=== PATIENT | female | born 1950 | race Caucasian/White ===

== ENCOUNTER 2016-06-05 10:15 | Outpatient (RCR) | payer BC ==
[~2016-06-05 10:15] MED LIST: ASPIRIN 32325 MG/TAB PO; FOLIC ACID 40400 MCG PO; IRON TABLETS325 MG PO; MILK OF MA400 MG/5 M PO; NORCO 325 MG-7.1 TAB PO; ROXICODONE 55 MG/TAB PO; SENOKOT8.6 MG PO; TAMBOCOR50 MG PO; VITAMIN C500 MG PO
== END 2016-07-25 14:24 | disposition home or self-care (01) ==
LOC: WSPT 10:15
DX: S93.492D Sprain of other ligament of left ankle, subsequent encounter (principal); X58.XXXD Exposure to other specified factors, subsequent encounter

== ENCOUNTER 2016-10-23 10:00 | Outpatient (RCR) | payer BC | END 2016-12-18 | disposition home or self-care (01) | LOC: WSPT | DX: M54.5 Low back pain (principal) | CPT/HCPCS: G0283-GP ==

== ENCOUNTER → 2017-05-12 | Outpatient (CLI) | payer BC | LOC: MC.RAD 13:00 | DX: Z12.31 Encounter for screening mammogram for malignant neoplasm of breast (principal) ==

== ENCOUNTER → 2018-01-15 | Outpatient (CLI) | payer MEDICARE, BC ==
[2018-01-15 16:48] LABS: HEMOGLOBIN 11.3 g/dl (12.5-16.0); MEAN CELL VOLUME 98 fl (80.0-100.0); MEAN CORPUSCULAR HEMOGLOBIN 33 pg (27.0-31.0); MEAN CORPUSCULAR HGB CONC 33 g/dl (33.0-37.0); MEAN PLATELET VOLUME 10.7 fl (7.4-10.4); PLATELET COUNT 170 K/mm3 (130-400); RED BLOOD COUNT 3.47 M/mm3 (4.10-5.30); REDCELL DISTRIBUTION WIDTH-CV 12.3 % (11.5-14.5)
[2018-01-15 16:53] LABS: HEMATOCRIT 33.9 % (37.0-47.0)
[2018-01-15 17:11] LABS: ERYTHROCYTE SEDIMENTATION RATE 6 mm/hr (0-30)
== END ==
LOC: COL.LAB 16:26
PROVIDERS: Orthopaedic Surgery
DX: Z47.1 Aftercare following joint replacement surgery (principal); M25.561 Pain in right knee; Z96.651 Presence of right artificial knee joint

== ENCOUNTER → 2018-06-08 | Outpatient (CLI) | payer MEDICARE, BC | LOC: MC.RAD 09:20 | DX: Z12.31 Encounter for screening mammogram for malignant neoplasm of breast (principal) ==

== ENCOUNTER → 2019-07-27 | Outpatient (CLI) | payer MEDICARE, BC | LOC: MC.RAD 06-22 09:15 | DX: Z12.31 Encounter for screening mammogram for malignant neoplasm of breast (principal) ==

== ENCOUNTER 2020-01-01 23:30 | Emergency (ER) | payer MEDICARE, BC ==
[~2020-01-01] VITALS: Ht 175.3 cm; Wt 76.4 kg
[2020-01-01 23:35] VITALS: TEMP 97.7
[2020-01-01 23:50] LABS: BASO % 0.3 % (0.0-2.0); EOS # 0.1 (0.0-0.7); EOS % 1.9 % (0-4.0); GRAN # 2.8 (1.4-6.5); GRAN % 47.4 % (42.2-75.2); HEMATOCRIT 37.6 % (37.0-47.0); HEMOGLOBIN 12.7 g/dl (12.5-16.0); LYMPH # 2.5 (1.2-3.4); LYMPH % 42.4 % (20.0-51.0); MEAN CELL VOLUME 99 fl (80.0-100.0); MEAN CORPUSCULAR HEMOGLOBIN 33 pg (27.0-31.0); MEAN CORPUSCULAR HGB CONC 34 g/dl (33.0-37.0); MEAN PLATELET VOLUME 10.4 fl (7.4-10.4); MONO # 0.5 (0.1-0.6); MONO % 7.8 % (1.7-9.3); PLATELET COUNT 182 K/mm3 (130-400); RED BLOOD COUNT 3.81 M/mm3 (4.10-5.30); REDCELL DISTRIBUTION WIDTH-CV 12.3 % (11.5-14.5)
[2020-01-02 00:06] LABS: ALANINE AMINOTRANSFERASE 17 U/L (4-34); ALBUMIN 4.1 gm/dL (3.5-5.0); ALKALINE PHOSPHATASE 47 U/L (50-136); ANION GAP 6 mmol/L (7-16); AST,SGOT 31 U/L (15-37); BILIRUBIN,TOTAL 0.3 mg/dL (0.0-1.0); BLOOD UREA NITROGEN 17 mg/dL (7-17); CALCIUM 9.1 mg/dL (8.4-10.2); CARBON DIOXIDE 28 mmol/L (22-30); CHLORIDE 101 mmol/L (98-107); CREATININE, serum 0.59 (0.52-1.25); GLUCOSE 99 mg/dL (74-106); POTASSIUM 3.7 mmol/L (3.4-5.0); SODIUM 135 mmol/L (137-145)
[2020-01-02 00:35] LABS: MAGNESIUM 2.1 mg/dL (1.6-2.3)
[2020-01-02 00:47] LABS: TROPONIN-I < 0.012 ng/mL (0.000-0.035)
[2020-01-02] MEDS ORDERED: B-121000 MCG PO (01:07)
[2020-01-02] MEDS ORDERED: VITAMIN D31000 IU PO (01:09)
[2020-01-02] MEDS ORDERED: ZYRTEC5 MG PO (01:09)
[2020-01-02] MEDS ORDERED: TAMBOCOR50 MG PO ×2 (02:03)
[2020-01-02] MEDS ORDERED: DOXYCYCLINE 10100 MG PO (02:03)
[2020-01-02 02:55] VITALS: BP 142/70; PULSE 52
[2020-01-03] MEDS ORDERED: TAMBOCOR50 MG PO (11:22)
== END 2020-01-02 03:00 | disposition home or self-care (01) ==
LOC: COL.ER 23:30
PROVIDERS: Emergency Medicine
DX: R00.2 Palpitations (principal); I48.91 Unspecified atrial fibrillation; Z20.828 Contact with and (suspected) exposure to other viral communicable diseases; Z88.0 Allergy status to penicillin; Z88.6 Allergy status to analgesic agent; Z79.82 Long term (current) use of aspirin
CPT/HCPCS: J7030; Q9967

== ENCOUNTER → 2020-08-01 | Outpatient (CLI) | payer MEDICARE, BC ==
[~2020-08-01] MED LIST changes: +B-121000 MCG PO; +DOXYCYCLINE 10100 MG PO; +VITAMIN D31000 IU PO; +ZYRTEC5 MG PO
== END ==
LOC: MC.RAD 13:00
DX: Z12.31 Encounter for screening mammogram for malignant neoplasm of breast (principal)

== ENCOUNTER → 2021-08-20 | Outpatient (CLI) | payer MEDICARE, BC | LOC: MC.RAD 15:00 | DX: Z12.31 Encounter for screening mammogram for malignant neoplasm of breast (principal) ==

== ENCOUNTER 2022-09-27 10:00 | Outpatient (RCR) | payer MEDICARE, BC | END 2022-10-13 | disposition home or self-care (01) | LOC: WSPT | DX: M25.562 Pain in left knee (principal); R53.1 Weakness ==

== ENCOUNTER → 2022-10-01 | Outpatient (CLI) | payer MEDICARE, BC | LOC: MC.RAD 08-22 09:15 | DX: Z12.31 Encounter for screening mammogram for malignant neoplasm of breast (principal) ==

== ENCOUNTER → 2023-11-05 | Outpatient (CLI) | payer MEDICARE, BC | LOC: MC.RAD 10:00 | DX: Z12.31 Encounter for screening mammogram for malignant neoplasm of breast (principal) ==